=== PATIENT | female | born 1995 | race Two or more races ===

== ENCOUNTER 2018-09-21 17:40 | Emergency (ER) | payer SELFPAY ==
[~2018-09-21] VITALS: Ht 162.6 cm; Wt 77.1 kg
[2018-09-21 18:27] VITALS: BP 128/80
--- NOTE | 2018-09-21 18:40 | PHYS DOC ---
Adult General Chief Complaint Chief Complaint: NAUSEA/VOMITING/DIARRHA HPI HPI 23-year-old female presents to ER via POV with her boyfriend. Patient reports she woke this morning and was feeling nauseated and since has had multiple episodes of vomiting. Patient had 1 loose stool this morning denies any diarrhea. Patient reports generalized fatigue. She denies any pain, urinary symptoms, or exposure to others with similar illness. Patient is currently on her menstrual cycle denies any abnormal vaginal bleeding. Patient denies any history of smoking, alcohol, or drug use. Review of Systems Review of Systems Constitutional: Denies fever or chills. Reports generalized fatigue Eyes: Denies change in visual acuity, redness, or eye pain [] HENT: Denies nasal congestion or sore throat [] Respiratory: Denies cough or shortness of breath [] Cardiovascular: No additional information not addressed in HPI [] GI: Denies abdominal pain, bloody stools or diarrhea. Reports nausea and vomiting-multiple episodes : Denies dysuria or hematuria [] Musculoskeletal: Denies back pain or joint pain [] Integument: Denies rash or skin lesions [] Neurologic: Denies headache, focal weakness or sensory changes [] All other systems were reviewed and found to be within normal limits, except as documented in this note. Current Medications Current Medications Current Medications Medications (Trade) Dose Ordered Sig/Oscar Start Time Stop Time Status Last Admin Dose Admin Metoclopramide HCl (Reglan Vial) 10 mg 1X ONCE 09/21/18 19:15 09/21/18 19:16 DC 09/21/18 19:12 10 MG Ondansetron HCl (Zofran) 4 mg 1X ONCE 09/21/18 20:00 09/21/18 20:01 UNV Sodium Chloride 1,000 ml @ 1,000 mls/hr 1X ONCE 09/21/18 18:45 09/21/18 19:44 DC 09/21/18 18:37 1,000 MLS/HR Allergies Allergies Allergies Coded Allergies Type Severity Reaction Last Updated Verified No Known Drug Allergies 09/21/18 No Physical Exam Physical Exam Constitutional: Well developed, well nourished, non-toxic appearance. Fatigued appearance- pale/flushed facial skin tone. HENT: Normocephalic, atraumatic, mucous membranes pale/dry, no oral exudates, nose normal. [] Eyes: Pupils equal, conjunctiva normal, no discharge. [] Neck: Normal range of motion, no tenderness, supple, no stridor. [] Cardiovascular: Heart rate regular rhythm, no murmur [] Lungs & Thorax: Bilateral breath sounds clear to auscultation- resp. equal/nonlabored Abdomen: Bowel sounds normal, soft- no distention/rigidity, no tenderness, no masses, no pulsatile masses. [] Skin: Warm, dry, no erythema, no rash. [] Back: No tenderness, no CVA tenderness. [] Extremities: No tenderness, no cyanosis, no clubbing, ROM intact, no edema. [] Neurologic: Alert and oriented X 3, normal motor function, normal sensory function, no focal deficits noted. [] Psychologic: Affect normal, judgement normal, mood normal. [] Current Patient Data Vital Signs Vital Signs Date Time Temp Pulse Resp B/P (MAP) Pulse Ox O2 Delivery O2 Flow Rate FiO2 09/21/18 18:27 97.7 69 16 128/80 (96) 100 Room Air 97.7 Lab Values Laboratory Tests Test 09/21/18 18:20 09/21/18 18:27 Urine Collection Type Unknown Urine Color Red Urine Clarity Cloudy Urine pH 8.0 Urine Specific [place] 1.025 Urine Protein 30 mg/dL (NEG-TRACE) Urine Glucose (UA) Negative mg/dL (NEG) Urine Ketones (Stick) >=80 mg/dL (NEG) Urine Blood Large (NEG) Urine Nitrite Negative (NEG) Urine Bilirubin Negative (NEG) Urine Urobilinogen Dipstick 0.2 mg/dL (0.2 mg/dL) Urine Leukocyte Esterase Small (NEG) Urine RBC Tntc /HPF (0-2) Urine WBC 0 /HPF (0-4) Urine Squamous Epithelial Cells Mod /LPF Urine Amorphous Sediment Present /HPF Urine Bacteria 0 /HPF (0-FEW) Urine Mucus Marked /LPF Urine Opiates Screen Neg (NEG) Urine Methadone Screen Neg (NEG) Urine Barbiturates Neg (NEG) Urine Phencyclidine Screen Neg (NEG) Urine Amphetamine/Methamphetamine Neg (NEG) Urine Benzodiazepines Screen Neg (NEG) Urine Cocaine Screen Neg (NEG) Urine Cannabinoids Screen Pos (NEG) Urine Ethyl Alcohol Neg (NEG) White Blood Count 11.2 x10^3/uL (4.0-11.0) H Red Blood Count 4.14 x10^6/uL (3.50-5.40) Hemoglobin 13.1 g/dL (12.0-15.5) Hematocrit 38.7 % (36.0-47.0) Mean Corpuscular Volume 94 fL (79-100) Mean Corpuscular Hemoglobin 32 pg (25-35) Mean Corpuscular Hemoglobin Concent 34 g/dL (31-37) Red Cell Distribution Width 13.6 % (11.5-14.5) Platelet Count 330 x10^3/uL (140-400) Neutrophils (%) (Auto) 90 % (31-73) H Lymphocytes (%) (Auto) 9 % (24-48) L Monocytes (%) (Auto) 2 % (0-9) Eosinophils (%) (Auto) 0 % (0-3) Basophils (%) (Auto) 0 % (0-3) Neutrophils # (Auto) 10.0 x10^3uL (1.8-7.7) H Lymphocytes # (Auto) 1.0 x10^3/uL (1.0-4.8) Monocytes # (Auto) 0.2 x10^3/uL (0.0-1.1) Eosinophils # (Auto) 0.0 x10^3/uL (0.0-0.7) Basophils # (Auto) 0.0 x10^3/uL (0.0-0.2) Segmented Neutrophils % 91 % (35-66) H Lymphocytes % 5 % (24-48) L Monocytes % 4 % (0-10) Platelet Estimate Increased (ADEQUATE) Large Platelets Occ Anisocytosis Slight Maternal Serum HCG Beta Subunit < 1 mIU/mL (0-5) Sodium Level 138 mmol/L (136-145) Potassium Level 3.4 mmol/L (3.5-5.1) L Chloride Level 101 mmol/L (98-107) Carbon Dioxide Level 21 mmol/L (21-32) Anion Gap 16 (6-14) H Blood Urea Nitrogen 14 mg/dL (7-20) Creatinine 0.7 mg/dL (0.6-1.0) Estimated GFR (Cockcroft-Gault) 102.0 BUN/Creatinine Ratio 20 (6-20) Glucose Level 152 mg/dL (70-99) H Calcium Level 9.7 mg/dL (8.5-10.1) Total Bilirubin 0.5 mg/dL (0.2-1.0) Aspartate Amino Transferase (AST) 17 U/L (15-37) Alanine Aminotransferase (ALT) 33 U/L (14-59) Alkaline Phosphatase 90 U/L (46-116) Total Protein 8.6 g/dL (6.4-8.2) H Albumin 4.2 g/dL (3.4-5.0) Albumin/Globulin Ratio 1.0 (1.0-1.7) Lipase 58 U/L (73-393) L Laboratory Tests 09/21/18 18:27 Laboratory Tests 09/21/18 18:27 EKG EKG [] Radiology/Procedures Radiology/Procedures [] Course & Med Decision Making Course & Med Decision Making Pertinent Labs reviewed. (See chart for details) Patient was evaluated in the ER for complaints of ongoing nausea and vomiting. Patient had labs and those results were discussed with her. UA negative for infection with negative- lg blood however pt currently on menses- serum HCG. Patient was positive for cannabinoids which was discussed and possible symptoms due to cannabinoid use- discussed cessation. She had 3.4 potassium so discussed- encouraged to increase diet as tolerated tonight. Patient's appearance has improved since receiving 2 L IV fluids and dose of Zofran and Reglan. Patient's skin tone pain and she is in no visible distress at time of discharge discussion. Patient reports she is feeling much better and is comfortable with home discharge plan as discussed. Will provide prescription for Zofran ODT. Education provided on signs and symptoms to return to ER. Discharge instructions were discussed. Patient to follow-up with primary care physician if symptoms persist or with any concerns. Dragon Disclaimer Dragon Disclaimer This electronic medical record was generated, in whole or in part, using a voice recognition dictation system. Departure Departure Impression: Primary Impression: Nausea & vomiting Referrals: NO PCP (PCP) Patient Instructions: Nausea and Vomiting Additional Instructions: Slowly advance diet as tolerated. Avoid smoking. Follow-up with your primary care physician if symptoms persist or with concerns. Scripts Ondansetron (ONDANSETRON ODT) 4 Mg Tab.rapdis 1 TAB PO PRN Q6-8HRS PRN for NAUSEA, #8 TAB 0 Refills Prov: KAHLIL MCNAIR APRN 09/21/18 REFFITT,KAHLIL Murray APRN Sep 21, 2018 18:40
[2018-09-21 18:43] LABS: BASO % 0 % (0-3); EOS % 0 % (0-3); HEMATOCRIT 38.7 % (36.0-47.0); HEMOGLOBIN 13.1 g/dL (12.0-15.5); LYMPH % 9 % (24-48); MEAN CORPUSCULAR HEMOGLOBIN 32 pg (25-35); MEAN CORPUSCULAR HGB CONC 34 g/dL (31-37); MEAN CORPUSCULAR VOLUME 94 fL (79-100); MONO # 0.2 x10^3/uL (0.0-1.1); MONO % 2 % (0-9); NEUT % 90 % (31-73); PLATELET COUNT 330 x10^3/uL (140-400); RED BLOOD COUNT 4.14 x10^6/uL (3.50-5.40); RED CELL DISTRIBUTION WIDTH 13.6 % (11.5-14.5); WHITE BLOOD COUNT 11.2 x10^3/uL (4.0-11.0)
[2018-09-21 18:44] LABS: BILIRUBIN,URINE NEGATIVE (NEG); CLARITY,URINE CLOUDY; NITRITE,URINE NEGATIVE (NEG); PROTEIN,URINE 30 mg/dL (NEG-TRACE); UROBILINOGEN,URINE 0.2 mg/dL (0.2 mg/dL)
[2018-09-21] MEDS ORDERED: IV NORMAL SALINE 1000ML BAG 1,000 ML IV ONE ×2 (18:45→19:00)
[2018-09-21 18:57] LABS: CALCIUM 9.7 mg/dL (8.5-10.1); CREATININE 0.7 mg/dL (0.6-1.0); POTASSIUM 3.4 mmol/L (3.5-5.1)
[2018-09-21 18:58] LABS: SQUAMOUS EPITHELIAL CELL,UR MOD /LPF
[2018-09-21 18:59] LABS: AMORPHOUS SEDIMENT,UR PRESENT /HPF; BACTERIA,URINE 0 /HPF (0-FEW); COLOR,URINE RED; RBC,URINE TNTC /HPF (0-2); WBC,URINE 0 /HPF (0-4)
[2018-09-21] MEDS ORDERED: ONDANSETRON PF 4 MG/2 ML VIAL. IV ONE ×3 (19:00→20:00)
[2018-09-21 19:03] LABS: ALBUMIN 4.2 g/dL (3.4-5.0); TOTAL BILIRUBIN 0.5 mg/dL (0.2-1.0); TOTAL PROTEIN 8.6 g/dL (6.4-8.2)
[2018-09-21] MEDS ORDERED: METOCLOPRAMIDE HCL 10 MG/2 ML VIAL. IV ONE (19:15)
[2018-09-21 19:39] LABS: % LYMPHS 5 % (24-48); % MONOS 4 % (0-10); % SEGS 91 % (35-66); ANISOCYTOSIS SLIGHT; PLT ESTIMATE INCREASED (ADEQUATE)
[2018-09-21 19:44] LABS: AMPHETAMINE/METHAMPHETAMINE NEG (NEG); BARBITURATES NEG (NEG); BENZODIAZEPINES NEG (NEG); CANNABINOIDS POS (NEG); COCAINE NEG (NEG); METHADONE NEG (NEG); OPIATES NEG (NEG); PHENCYCLIDINE NEG (NEG)
[2018-09-21] MEDS ORDERED: ONDA4TAB12 PO (20:07)
== END 2018-09-21 20:35 | disposition home or self-care (01) ==
LOC: ER 17:40
DX: R11.2 Nausea with vomiting, unspecified (principal); R53.83 Other fatigue; R19.7 Diarrhea, unspecified
CPT/HCPCS: 36415; 80053; 80307; 81001; 83690; 84702; 85007; 85025; 87086; 96361; 96374; 96375; 96376; 99284; J2405; J2765; J7030